=== PATIENT | female | born 1970 | race Caucasian/White ===

== ENCOUNTER 2016-05-07 10:09 | Emergency (ER) | payer OTHER ==
--- NOTE | 2016-05-07 10:43 | CPEKG ---
Heart Rate: 53 RR Interval: 1132 P-R Interval: 132 QRSD Interval: 72 QT Interval: 444 QTC Interval: 417 P [place]: 47 QRS [place]: -4 T Wave [place]: 22 EKG Severity - BORDERLINE ECG - EKG Impression: SINUS RHYTHM EKG Impression: LOW VOLTAGE IN FRONTAL LEADS EKG Impression: BORDERLINE R WAVE PROGRESSION, ANTERIOR LEADS Electronically Signed By: Cassie Jimenez 08-May-2016 16:33:05
[2016-05-07] MEDS ORDERED: ASPIRIN 81 MG CHEWABLE TAB ONE (11:08)
[2016-05-07] MEDS ORDERED: ASPIRIN 81 MG CHEWABLE TAB PO ONE (11:08)
[2016-05-07] MEDS ORDERED: LORazepam 2 MG/ML INJ IVP ONE ×2 (11:38→12:45)
[2016-05-07 11:40] LABS: % IMMATURE GRANULYOCYTES 0.3 % (0.0-1.1); ABSOLUTE IMMATURE GRANULOCYTES 0.02 10^3/uL (0.00-0.10); ADD DIFF? NO; ADD MORPH? NO; ADD SCAN? NO; ATYPICAL LYMPHOCYTE FLAG 0 (0-99); FRAGMENT RBC FLAG 0 (0-99); HEMATOCRIT 41.9 % (38.0-47.0); HEMOGLOBIN 15.6 g/dL (12.6-16.3); LEFT SHIFT FLG 10 (0-99); LIPEMIA HEMOLYSIS FLAG 90 (0-99); MEAN CELL HEMOGLOBIN 34.7 pg (27.9-34.1); MEAN CELL HEMOGLOBIN CONCENTR. 37.2 g/dL (32.4-36.7); MEAN CELL VOLUME 93.3 fL (81.5-99.8); MEAN PLATELET VOLUME 8.9 fL (8.7-11.7); PLATELET CLUMPS FLAG 0 (0-99); PLATELET COUNT 181 10^3/uL (150-400); RED BLOOD CELL COUNT 4.49 10^6/uL (4.18-5.33); RED CELL DISTRIBUTION WIDTH 12.3 % (11.5-15.2)
[2016-05-07 11:52] LABS: ANION GAP 13 mEq/L (8-16); CALCIUM 9.7 mg/dL (8.5-10.4); CARBON DIOXIDE 23 mEq/l (22-31); CHLORIDE 101 mEq/L (97-110); CREATININE 0.8 mg/dL (0.6-1.0); ETHANOL SERUM < 10 mg/dL (0-10); GLOMERULAR FILTRATION RATE > 60; GLUCOSE 103 mg/dL (70-100); POTASSIUM 4.3 mEq/L (3.5-5.2); SODIUM 137 mEq/L (134-144)
--- NOTE | 2016-05-07 11:52 | EDPHY ---
H & P Time Seen by Provider: 05/07/16 10:59 HPI/ROS: CHIEF COMPLAINT: Feeling tremulous, anxious, chest pain HISTORY OF PRESENT ILLNESS: 45-year-old female presents to the emergency department by private vehicle complaining of feeling extremely tremulous and anxious. The patient states that she has slept in the last 3 days. She describes substernal chest pain that has been present for the last 3 days. She denies feeling short of breath. Denies pleuritic chest pain. Patient states that she has been under a great deal of stress lately. Her father fluid from [place] and is concerned about her. He does report that patient has a hearing tomorrow and feels that this is likely adding to her stress. She tried taking 0.125 mg of Ativan without relief. She had been "binge drinking" over 1 week ago. She does not know if she is withdrawing from alcohol. She denies suicidal or homicidal ideation. Denies headache. Denies neck or back pain. Denies abdominal pain or vomiting. Denies pain in upper or lower extremities. REVIEW OF SYSTEMS: Constitutional: No fever, no chills. Eyes: No double or blurry vision. ENT: No sore throat. Respiratory: No cough, no shortness of breath. Cardiac: chest pain. Gastrointestinal: No abdominal pain, vomiting or diarrhea. Genitourinary: No dysuria. Musculoskeletal: No neck or back pain. Skin: No rashes. Neurological: No headache. Past Medical/Surgical History: Orthopedic surgery, Social History: Single Smoking Status: Current every day smoker Physical Exam: General Appearance: Alert, no distress. Tremulous, anxious. Father at bedside. Eyes: Pupils equal and round. Extraocular motions are all intact. ENT: Mouth: Mucous membranes moist. Respiratory: No wheezing, rhonchi, or rales, lungs are clear to auscultation. Cardiovascular: Regular rate and rhythm. Gastrointestinal: Abdomen is soft and nontender, no masses, no rebound or guarding, bowel sounds normal. Neurological: Alert and oriented x 3, cranial nerves II through XII grossly intact Skin: Warm and dry, no rashes. Musculoskeletal: Nontender to palpate along the cervical, thoracic or lumbar spine. Neck is supple. Extremities: Full range of motion and no peripheral edema. Psychiatric: Patient is oriented X 3, there is no agitation. Constitutional: Initial Vital Signs Temperature (C) 36.6 C 05/07/16 10:20 Heart Rate 64 05/07/16 10:20 Respiratory Rate 20 05/07/16 10:20 Blood Pressure 151/84 H 05/07/16 10:20 O2 Sat (%) 96 05/07/16 10:20 O2 Delivery Mode Room Air Allergies/Adverse Reactions: Penicillins Allergy (Severe, Verified 05/07/16 10:18) Anaphylaxis Home Medications: Medication Instructions Recorded ALPRAZolam [Xanax 0.5 MG (*)] 0.5 mg PO TID PRN #20 tab 05/07/16 Propranolol HCl 05/07/16 Rozerem 05/07/16 Xanax 05/07/16 Zoloft 50mg (*) 05/07/16 chlordiazePOXIDE [Librium 25 mg 25 mg PO TID PRN #12 cap 05/07/16 (*)] traZODone 05/07/16 Medical Decision Making - Diagnostics EKG Interpretation: EKG was reviewed by Dr. Cassie Jimenez. See interpretation in trace master. Imaging: Chest x-rays unremarkable. No acute pulmonary disease. This is reviewed by myself the PAC system as well as by the radiologist. ED Course/Re-evaluation: 45-year-old female presents to the emergency department feeling extremely tremulous and anxious. She is also complaining of chest pain. Patient had an IV established and laboratory studies were drawn. Patient is a normal troponin and a normal D-dimer. I doubt this patient is having a pulmonary embolism. The case was discussed with Dr. Cassie Jimenez, who also evaluated the patient and performed a bedside ultrasound and revealed no pericardial effusion. Patient is given IV Ativan and her pain in her chest nearly completely resolved. She was feeling less anxious. She was still slightly tremulous. She told Dr. Cassie Jimenez that she last drank yesterday and she last binge on alcohol over 1 week ago. I explained to the patient that her symptoms could be related to alcohol withdrawal. Patient was given 25 mg above oral Librium in the emergency department as well. She was discharged home with 25 mg of oral Librium QA repeat if needed. I did caution her with using the Librium and and Xanax at the same time. She has a scheduled appointment with psychologist or counselor tomorrow which I encouraged her to keep. She was instructed to return if she developed any other change in symptoms or if she felt worse. She felt comfortable being discharged home. Differential Diagnosis: Chest pain including but not limited to anxiety, myocardial ischemia, pulmonary embolus, chest wall pain, pleural inflammation and pulmonary infectious causes. - Data Points Laboratory Results: Laboratory Results 05/07/16 11:02 05/07/16 11:02 05/07/16 05/07/16 05/07/16 11:02 11:02 11:02 WBC 6.34 10^3/uL 10^3/uL (3.80-9.50) RBC 4.49 10^6/uL 10^6/uL (4.18-5.33) Hgb 15.6 g/dL g/dL (12.6-16.3) Hct 41.9 % % (38.0-47.0) MCV 93.3 fL fL (81.5-99.8) MCH 34.7 pg H pg (27.9-34.1) MCHC 37.2 g/dL H g/dL (32.4-36.7) RDW 12.3 % % (11.5-15.2) Plt Count 181 10^3/uL 10^3/uL (150-400) MPV 8.9 fL fL (8.7-11.7) Neut % (Auto) 74.8 % H % (39.3-74.2) Lymph % (Auto) 18.1 % % (15.0-45.0) [place] % (Auto) 6.3 % % (4.5-13.0) Eos % (Auto) 0.2 % L % (0.6-7.6) Baso % (Auto) 0.3 % % (0.3-1.7) Nucleat RBC Rel Count 0.0 % % (0.0-0.2) Absolute Neuts (auto) 4.74 10^3/uL 10^3/uL (1.70-6.50) Absolute Lymphs (auto) 1.15 10^3/uL 10^3/uL (1.00-3.00) Absolute Monos (auto) 0.40 10^3/uL 10^3/uL (0.30-0.80) Absolute Eos (auto) 0.01 10^3/uL L 10^3/uL (0.03-0.40) Absolute Basos (auto) 0.02 10^3/uL 10^3/uL (0.02-0.10) Absolute Nucleated RBC 0.00 10^3/uL 10^3/uL (0-0.01) Immature Gran % 0.3 % % (0.0-1.1) Immature Gran # 0.02 10^3/uL 10^3/uL (0.00-0.10) D-Dimer < 0.27 ug/mLFEU ug/mLFEU (0.00-0.50) Sodium 137 mEq/L mEq/L (134-144) Potassium 4.3 mEq/L mEq/L (3.5-5.2) Chloride 101 mEq/L mEq/L (97-110) Carbon Dioxide 23 mEq/l mEq/l (22-31) Anion Gap 13 mEq/L mEq/L (8-16) BUN 24 mg/dL H mg/dL (7-23) Creatinine 0.8 mg/dL mg/dL (0.6-1.0) Estimated GFR > 60 Glucose 103 mg/dL H mg/dL (70-100) Calcium 9.7 mg/dL mg/dL (8.5-10.4) Troponin I < 0.012 ng/mL ng/mL (0-0.034) Ethyl Alcohol < 10 mg/dL mg/dL (0-10) Medications Given: Discontinued Medications Aspirin (Aspirin) 324 mg PO EDNOW ONE Stop: 05/07/16 11:09 Last Admin: 05/07/16 11:44 Dose: Not Given Chlordiazepoxide HCl (Librium) 25 mg PO EDNOW ONE Stop: 05/07/16 14:33 Last Admin: 05/07/16 15:00 Dose: 25 mg Lorazepam (Ativan Injection) 0.5 mg IVP EDNOW ONE Stop: 05/07/16 11:39 Last Admin: 05/07/16 11:50 Dose: 0.5 mg Lorazepam (Ativan Injection) 0.5 mg IVP EDNOW ONE Stop: 05/07/16 12:46 Last Admin: 05/07/16 12:58 Dose: 0.5 mg Departure - Departure Disposition: Home, Routine, Self-Care Clinical Impression: Anxiety Alcohol withdrawal Qualifiers: Complication of substance-induced condition: uncomplicated Qualified Code(s): F10.230 - Alcohol dependence with withdrawal, uncomplicated Condition: Good Instructions: Alcohol Withdrawal (ED), Anxiety (ED) Additional Instructions: Librium as directed for symptoms of alcohol withdrawal. Do not drink alcohol. Return if you have any change in symptoms or if you feel worse in any way. Referrals: Yunier Lozada [Primary Care Provider] - As per Instructions Prescriptions: ALPRAZolam [Xanax 0.5 MG (*)] 0.5 mg PO TID PRN #20 tab PRN Reason: Anxiety chlordiazePOXIDE [Librium 25 mg (*)] 25 mg PO TID PRN #12 cap PRN Reason: P.r.n. anxiety, alcohol withdr
[2016-05-07 12:03] LABS: TROPONIN I < 0.012 ng/mL (0-0.034)
--- NOTE | 2016-05-07 12:44 | CPEKG ---
Heart Rate: 57 RR Interval: 1053 P-R Interval: 136 QRSD Interval: 68 QT Interval: 444 QTC Interval: 433 P [place]: 33 QRS [place]: -10 T Wave [place]: 17 EKG Severity - BORDERLINE ECG - EKG Impression: SINUS RHYTHM EKG Impression: LOW VOLTAGE IN FRONTAL LEADS EKG Impression: BORDERLINE R WAVE PROGRESSION, ANTERIOR LEADS Electronically Signed By: Cassie Jimenez 08-May-2016 16:32:48
[2016-05-07] MEDS ORDERED: chlordiazePOXIDE 25 MG CAP PO ONE (14:32)
[2016-05-07 14:39] VITALS: BP 116/71; PULSE 60; RESP 16; TEMP 98.1; O2SAT 95
== END 2016-05-07 15:00 | disposition home or self-care (01) ==
DX: F41.9 Anxiety disorder, unspecified (principal); F10.230 Alcohol dependence with withdrawal, uncomplicated; F17.200 Nicotine dependence, unspecified, uncomplicated
CPT/HCPCS: 96374; G0480

== ENCOUNTER 2017-04-19 15:15 | Emergency (ER) | payer OTHER ==
[2017-04-19 15:21] VITALS: RESP 18; TEMP 97.5
[2017-04-19] MEDS ORDERED: ONDANSETRON 4 MG/2 ML VIAL IVP ONE (15:59)
--- NOTE | 2017-04-19 16:05 | EDPHY ---
H & P Time Seen by Provider: 04/19/17 15:41 HPI/ROS: CHIEF COMPLAINT: Nausea and vomiting HISTORY OF PRESENT ILLNESS: Patient had a traumatic break up with an ex- boyfriend last fall and was on Xanax. She became a patient of [facility] who took her off the Xanax started her on gabapentin for tremors and emotional trauma. Patient describes decreased appetite and increased sleep. She has gained 30 lb since October. She has had nausea and vomiting every day for the last 2 months. He is also associated with some diarrhea and she has continued to drink alcohol pretty much every day. She presents today because of continued nausea vomiting and"shaking like a leaf. " No seizure disorder. No skin changes. Symptoms severe. REVIEW OF SYSTEMS: Eye: no change in vision ENT: no sore throat Cardiac: no chest pain or syncope Pulmonary: no cough or SOB Abdomen: No abdominal pain. She does feel bloated. Musculoskeletal: no back pain Skin: no rash Neuro: no headache Constitutional: no fever : no urinary symptoms A comprehensive 10 point review of systems is otherwise negative aside from elements mentioned in the history of present illness. PAST MEDICAL HISTORY: Includes orthopedic surgeries, anxiety Social history: Alcohol as above, she is here with a good friend. General Appearance: Alert and conversant, cooperative. Eyes: No scleral icterus. ENT, Mouth: Slightly dry mucous membranes. Respiratory: Normal respiratory effort, breath sounds equal, lungs are clear to auscultation. Cardiovascular: Regular rate and rhythm. Gastrointestinal: Abdomen is soft and non tender. No rebound or guarding. Neurological: Alert, face symmetric, normal motor and sensory in extremities. Skin: Warm and dry, no rashes. Musculoskeletal: No peripheral edema. Psychiatric: Not agitated. Emergency Department course/MDM: Zofran 4 mg IV. Labs to include electrolytes and liver function tests and . Willam Jones PA-C from her primary care practice here to see her; he has personally seen her and recommends that we discharge her and they will followup in the office tomorrow. Smoking Status: Current every day smoker Constitutional: Initial Vital Signs Temperature (C) 36.4 C 04/19/17 15:16 Heart Rate 91 04/19/17 15:16 Respiratory Rate 18 04/19/17 15:16 Blood Pressure 149/90 H 04/19/17 15:16 O2 Sat (%) 94 04/19/17 15:16 O2 Delivery Mode Room Air Allergies/Adverse Reactions: Penicillins Allergy (Severe, Verified 05/07/16 10:18) Anaphylaxis Home Medications: Medication Instructions Recorded traZODone 05/07/16 Clonazepam 04/19/17 Gabapentin 04/19/17 Medical Decision Making Differential Diagnosis: Differential for shaking considered including but not limited to alcohol withdrawal, medication reaction, metabolic disorder, dehydration, anxiety - Data Points Laboratory Results: Laboratory Results 04/19/17 16:15 04/19/17 16:15 04/19/1718 04/19/17 16:15 16:15 16:15 WBC 5.67 10^3/uL 10^3/uL (3.80-9.50) RBC 4.59 10^6/uL 10^6/uL (4.18-5.33) Hgb 15.8 g/dL g/dL (12.6-16.3) POC Hgb Hct 44.2 % % (38.0-47.0) POC Hct MCV 96.3 fL fL (81.5-99.8) MCH 34.4 pg H pg (27.9-34.1) MCHC 35.7 g/dL g/dL (32.4-36.7) RDW 12.8 % % (11.5-15.2) Plt Count 167 10^3/uL 10^3/uL (150-400) MPV 8.7 fL fL (8.7-11.7) Neut % (Auto) 64.7 % % (39.3-74.2) Lymph % (Auto) 26.1 % % (15.0-45.0) [place] % (Auto) 7.8 % % (4.5-13.0) Eos % (Auto) 0.5 % L % (0.6-7.6) Baso % (Auto) 0.7 % % (0.3-1.7) Nucleat RBC Rel Count 0.0 % % (0.0-0.2) Absolute Neuts (auto) 3.67 10^3/uL 10^3/uL (1.70-6.50) Absolute Lymphs (auto) 1.48 10^3/uL 10^3/uL (1.00-3.00) Absolute Monos (auto) 0.44 10^3/uL 10^3/uL (0.30-0.80) Absolute Eos (auto) 0.03 10^3/uL 10^3/uL (0.03-0.40) Absolute Basos (auto) 0.04 10^3/uL 10^3/uL (0.02-0.10) Absolute Nucleated RBC 0.00 10^3/uL 10^3/uL (0-0.01) Immature Gran % 0.2 % % (0.0-1.1) Immature Gran # 0.01 10^3/uL 10^3/uL (0.00-0.10) POC Sodium Sodium 138 mEq/L mEq/L (135-145) POC Potassium Potassium 4.5 mEq/L mEq/L (3.5-5.2) POC Chloride Chloride 101 mEq/L mEq/L (97-110) Carbon Dioxide 18 mEq/l L mEq/l (22-31) Anion Gap 19 mEq/L H mEq/L (8-16) POC BUN BUN 19 mg/dL mg/dL (7-23) Creatinine 0.8 mg/dL mg/dL (0.6-1.0) POC Creatinine Estimated GFR > 60 Glucose 76 mg/dL mg/dL (70-100) POC Glucose Calcium 9.1 mg/dL mg/dL (8.5-10.4) Total Bilirubin 0.6 mg/dL mg/dL (0.1-1.4) Conjugated Bilirubin 0.3 mg/dL mg/dL (0.0-0.5) Unconjugated Bilirubin 0.3 mg/dL mg/dL (0.0-1.1) AST 79 IU/L H IU/L (14-46) ALT 66 IU/L H IU/L (9-52) Alkaline Phosphatase 54 IU/L IU/L (38-126) Total Protein 7.4 g/dL g/dL (6.3-8.2) Albumin 4.6 g/dL g/dL (3.5-5.0) Lipase 590 IU/L H IU/L (23-300) Beta HCG, Qual NEGATIVE 04/19/17 16:07 WBC RBC Hgb POC Hgb 15.6 gm/dL gm/dL (12.6-16.3) Hct POC Hct 46 % % (38-47) MCV MCH MCHC RDW Plt Count MPV Neut % (Auto) Lymph % (Auto) [place] % (Auto) Eos % (Auto) Baso % (Auto) Nucleat RBC Rel Count Absolute Neuts (auto) Absolute Lymphs (auto) Absolute Monos (auto) Absolute Eos (auto) Absolute Basos (auto) Absolute Nucleated RBC Immature Gran % Immature Gran # POC Sodium 137 mEq/L mEq/L (135-145) Sodium POC Potassium 4.2 mEq/L mEq/L (3.3-5.0) Potassium POC Chloride 101 mEq/L mEq/L (97-110) Chloride Carbon Dioxide Anion Gap POC BUN 20 mg/dL mg/dL (7-23) BUN Creatinine POC Creatinine 0.9 mg/dL mg/dL (0.6-1.0) Estimated GFR Glucose POC Glucose 76 mg/dL mg/dL (70-100) Calcium Total Bilirubin Conjugated Bilirubin Unconjugated Bilirubin AST ALT Alkaline Phosphatase Total Protein Albumin Lipase Beta HCG, Qual Medications Given: Discontinued Medications Sodium Chloride (Ns) 1,000 mls @ 0 mls/hr IV ONCE ONE; Wide Open PRN Reason: Protocol Stop: 04/19/17 16:07 Last Admin: 04/19/17 16:18 Dose: 1,000 mls Sodium Chloride (Ns) 1,000 mls @ 0 mls/hr IV EDNOW ONE; Wide Open PRN Reason: Protocol Stop: 04/19/17 16:18 Last Admin: 04/19/17 16:19 Dose: 1,000 mls Ondansetron HCl (Zofran) 4 mg IVP EDNOW ONE Stop: 04/19/17 16:00 Last Admin: 04/19/17 16:09 Dose: 4 mg Point of Care Test Results: 04/19/17 16:07 POC Sodium 137 POC Potassium 4.2 POC Chloride 101 POC BUN 20 POC Creatinine 0.9 POC Glucose 76 Departure - Departure Disposition: Home, Routine, Self-Care Clinical Impression: Dehydration Condition: Good Instructions: Dehydration (ED) Referrals: MELISSA MULTANI MD [Non Staff Provider (MD)] - As per Instructions
[2017-04-19] MEDS ORDERED: NS 1,000 ML IV ONE ×2 (16:06→16:17)
[2017-04-19 16:27] LABS: PLATELET COUNT 167 10^3/uL (150-400)
[2017-04-19 17:32] VITALS: BP 159/98; PULSE 77; O2SAT 93
== END 2017-04-19 17:33 | disposition home or self-care (01) ==
DX: E86.0 Dehydration (principal); E86.9 Volume depletion, unspecified; F17.200 Nicotine dependence, unspecified, uncomplicated
CPT/HCPCS: 82947-QW; 96374; J2405

== ENCOUNTER → 2017-11-14 | Outpatient (CLI) | payer OTHER ==
[~2017-11-14] MED LIST: GADOBUTROL 10 ML VIAL IVP ONE
== END ==
LOC: FIMAGING 16:25
PROVIDERS: ATTEND Family Medicine
DX: I62.00 Nontraumatic subdural hemorrhage, unspecified (principal); Q27.8 Other specified congenital malformations of peripheral vascular system
CPT/HCPCS: A9585